=== PATIENT | female | born 2000 | race Caucasian/White ===

== ENCOUNTER → 2021-03-04 | Outpatient (CLI) | payer BC ==
--- NOTE | 2021-03-04 09:13 | MR ---
EXAMINATION TYPE: MR shoulder RT wo con DATE OF EXAM: 03/04/2021 COMPARISON: None HISTORY: Right shoulder pain, numbness and tingling in arm and hand TECHNIQUE: Multiplanar, multisequence imaging of the right shoulder is performed without contrast. FINDINGS: Rotator Cuff: The supraspinatus, infraspinatus, teres minor and subscapularis tendons are intact. Acromioclavicular Joint: Unremarkable acromioclavicular joint without os acromiale or subacromial spu r. There is trace fluid in the subacromial/subdeltoid bursa. Glenohumeral Joint: Articular cartilage is preserved. No significant glenohumeral joint effusion. Labrum: The labrum appears grossly intact given limitation of non-arthrogram study. Biceps Tendon: The long head of biceps is in normal location within bicipital groove. Bone marrow signal: No focal abnormal marrow signal is appreciated. Other: No additional significant abnormality is appreciated. IMPRESSION: Trace fluid in the subacromial/subdeltoid bursa. Rotator cuff and labrum are intact.
--- NOTE | 2021-03-04 09:25 | MR ---
EXAMINATION TYPE: MR cervical spine wo con DATE OF EXAM: 03/04/2021 COMPARISON: None HISTORY: 20-year-old female Cervicalgia, right shoulder pain, numbness and tingling in arm and hand TECHNIQUE: Multiplanar, multisequence images of the cervical spine were acquired. FINDINGS: No craniocervical junction abnormality, predental space widening, or prevertebral soft tissue swellin g. While there is preserved alignment of the cervical spine, there is straightening and slight reversal of the normal cervical lordosis. Minimal early intervertebral disc desiccation at C5-C6 and minimal posterior disc bulge at this level . This minimally impresses onto the ventral thecal sac but does not cause any significant spinal lilibeth l stenosis. No significant neuroforaminal stenosis is seen. No suspicious bone marrow placement. Normal course, caliber, and signal intensity of the cervical spinal cord. IMPRESSION: 1. Some straightening of the normal cervical lordosis could be positional or due to muscle spasm. 2. Very minimal early intervertebral disc desiccation at C5-C6 and minimal posterior disc bulge at th is level. 3. No other significant degenerative change. No focal disc herniation or spinal canal/neuroforaminal stenosis.
== END | disposition home or self-care (01) ==
LOC: RADMRIMAIN 08:04
PROVIDERS: ATTEND Orthopaedic Surgery
DX: M50.222 Other cervical disc displacement at C5-C6 level (principal); M25.511 Pain in right shoulder
CPT/HCPCS: 72141